=== PATIENT | female | born 2000 | race Caucasian/White ===

== ENCOUNTER 2024-06-08 11:56 | Outpatient (CLI) | payer OTHER, SELFPAY ==
--- OUTSIDE RECORDS SUMMARY | 2024-06-08 11:58 | XMS_ITS | Clinical Summary ---
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 0 02/25/2014 Active Estarylla 0.25-35 mg-mcg tabletIndication s:Irregular periods TAKE 1 TABLET BY MOUTH EVERY DAY 84 Tablet 01/20/2021 Active Active Problems Problem Noted Date Diagnosed Date Anxiety 11/28/2015 Seasonal allergies 11/28/2015 Immunizations Name Administration Dates Next Due DTaP 10/05/2004, 1,1999,06/19,1999 HIB-HepB (Comvax) 1999,1999 Hepatitis A (Peds) 11/10/2017,10/15/2016 Hepatitis B (Peds) 09/02/2004 Hepatitis B, Unspecified 03/09/2000 Human Papilloma Virus Vaccine 06/30/2012, 012,12/14/2011 Inactivated Polio Vaccine 09/02/2004,1999, 1999 Influenza Virus, Unspecified 03/20/2009 Influenza, IIV3 (Age >=3 years) 05/11/2003 MENINGOCOCCAL VACCINE 2 VIAL 2MO-55YO (MENVEO) 10/15/2016 MMR 10/05/2004,09/02/2004 Polio Virus, Unspecified 1999 Tdap 12/14/2011 Varicella Vaccine 12/14/2011,03/09/2000 Family History Medical History Relation Name Comments Good Health Father Good Health Mother Good Health Sister Relation Name Status Comments Father Mother Alive Sister Social History Tobacco Use Types Packs/Day Years Used Date Smoking Tobacco: Never Smokeless Tobacco: Never Tobacco Cessation:Counseling Given: Yes Comments:no passive smoke exposure Alcohol Use Standard Drinks/Week Comments Yes 0 (1 standard drink = 0.6 oz pur e alcohol) socially PHQ-2 Answer Date Recorded PHQ-2 TOTAL SCORE 3 04/10/2020 Social Connections Answer Date Recorded Frequency of Communication with Friends and Fami ly Not on file 06/06/2021 Financial Resource Strain Answer Date R ecorded Difficulty of Paying Living Expenses Not on file 06/06/2021 Difficulty of Paying Living Expenses Not on file 06/06/2021 Comments No Sex and Gender Information Value Date Recorded Sex Assigned at Not on file Legal Sex Female 11:23 AM CDT Gender Identity Not on file Sexual Orientation Not on file Obstetrics History Para Term AB IAB SAB Ectopic Multiple Livin g Live Births 0 0 0 0 0 0 0 0 Last Filed Vital Signs Vital Sign Reading Time Taken Comments Blood Pressure 116/76 05/24/2019 9:29 AM CAD MANAGER Pulse 77 05/24/2019 9:29 AM CAD MANAGER Temperature 36.5 C (97.7 F) 05/24/2019 9:29 AM CAD MANAGER Respiratory Rate - - Oxygen Saturation 98% 05/24/2019 9:29 AM CAD MANAGER Inhaled Oxygen Concentration - - Weight 69.9 kg (154 lb) 05/24/2019 9:29 AM CAD MANAGER Height 168 cm (5' 6.14) 05/24/2019 9:29 AM CAD MANAGER Body Mass Index 24.75 05/24/2019 9:29 AM CAD MANAGER Plan of Treatment Health Maintenance Due Date Last Done Comments HIV for age 15-65 2014 Hepatitis C screening for age 18-79 2017 Pap test for age 21-65 02/25/2020 BMI (ht and wt on same day) for age 18+ 05/24/2020 05/24/2019, 11/20/2018, 11/10/2017 Depression screening for age 12+ 04/10/2021 04/10/2020, 05/24/2019, 11/10/2017, Additional history exists Tetanus booster 12/13/2021 12/14/2011 COVID-19 vaccine series (2023- season) 2024 Influenza for age 9-49 02/05/2024 03/20/2009, 2002 Tdap Completed 12/14/2011 HPV series for age 9-26 Completed 06/30/19 13, 02/28/2012, 12/14/2011 Pneumococcal series for age 6-49 Aged Out No longer eligible based on patient's age to complete this topic [place] [id number] [place] [id number] [place] [id number] Care Teams Sinter Press Operator Relationship Specialty Start Date End Date None . 02/14/14
[2024-06-08 12:20] VITALS: PULSE 117; O2SAT 98
[2024-06-08 12:24] VITALS: RESP 18; TEMP 36.9
[2024-06-08 12:25] VITALS: PULSE 118; O2SAT 98
[2024-06-08 12:32] VITALS: BP 114/67; PULSE 100
--- NOTE | 2024-06-08 12:47 | CRLHL7_ITS ---
For Patients: As a result of the Century Cures Act, medical imaging exams and procedure reports are released immediately into your electronic medical record. You may view this report before your referring provider. If you have questions, please contact your health care provider. INDICATION: Vaginal bleeding COMPARISON: None TECHNIQUE: Real time wu scale imaging of the fetus was performed as well as color Doppler analysis of the umbilical vessels. FINDINGS: Sonographic imaging demonstrates a single living intrauterine gestation. The fetus has a regular cardiac rate of 149 beats per minute. The fetus has a vertex orientation. The placenta lies posterior without evidence of placenta previa or abruption. Amniotic fluid volume appears normal. The cervix is closed and measures 3.9 cm in length. The composite ultrasound gestational age is calculated at 29 weeks and 2 days with an estimated sonographic due date of 08/22/2024. The estimated weight is 1395 grams which lies at the 65th percentile. The following biometric measurements were obtained: Biparietal diameter: 7.2 cm, 28 weeks and 5 days Head circumference: 26.9 cm, 29 weeks and 2 days Abdominal circumference: 25.6 cm, 29 weeks and 5 days Femur length: 5.5 cm, 29 weeks and 1 day The HC/AC ratio measures: 1.05 Biophysical profile exam: Gross body movements: 2/2 tone: 2/2 Respiratory activity: 2/2 Amniotic Fluid: 2/2 IMPRESSION: 1. Single living intrauterine gestation in vertex position with heart rate 149. No abnormalities are noted. 2. Normal biophysical profile exam score of 8/8. 3. Ultrasound gestational age 29 weeks and 2 days with sonographic due date 08/22/2024. Dictated by Ambrosio Oswald MD @ 06/08/2024 2:04:24 PM (Electronically Signed)
--- NOTE | 2024-06-08 12:50 | PM.OBLDTN ---
OB - Triage/Final Diagnosis Visit Information Date Seen: 06/08/24 Narrative: The patient is a 24 year old 1 para 0 at 28w5d gestation by patient report, who presents with vaginal bleeding with wiping only this morning and later morning. She has had prior episodes similar to this at around 20 weeks and was sent home from hospital in [place]. No episodes since. She is here on holiday and records are here. She reports she was told she has a low lying placenta. No LOF, vaginal itching or odor. good movement. No intercourse in the last 24 hours. No dysuria, abdominal pain. PMH: Depression Seasonal allergies A: Benign vaginal bleeding in 28w5d BPP 8/8 US findings:1. Single living intrauterine gestation in vertex position with heart rate 149. No abnormalities are noted. 2. Normal biophysical profile exam score of 8/8. 3. Ultrasound gestational age 29 weeks and 2 days with sonographic due date 08/22/2024. Sonographic imaging demonstrates a single living intrauterine gestation. The fetus has a regular cardiac rate of 149 beats per minute. The fetus has a vertex orientation. The placenta lies posterior without evidence of placenta previa or abruption. Amniotic fluid volume appears normal. The cervix is closed and measures 3.9 cm in length. The composite ultrasound gestational age is calculated at 29 weeks and 2 days with an estimated sonographic due date of 08/22/2024. The estimated weight is 1395 grams which lies at the 65th percentile. P: Discharge home with precautions reviewed. To return with any new signs or symptoms or worsening of bleeding. To consider withholding intercourse only to prevent unnecessary worry if more bleeding were to occur. No indications of harm to or baby at this time, but will return with any changes. Is returning to [place] on Tuesday. Encouraged hydration, good mobility and good hand hygiene. They agree with the plan and have no further questions at this time. Evaluation Vital signs: Vital Signs - 24 hr 06/08/24 12:20 06/08/24 12:24 06/08/24 12:25 Temperature 98.4 F Pulse Rate Respiratory Rate 18 Blood Pressure Pulse Oximetry 98 98 06/08/24 12:32 Temperature Pulse Rate 100 Respiratory Rate Blood Pressure 114/67 Pulse Oximetry Comments: Vitals Reviewed Constitutional:? Alert and oriented x3 HEENT:? Normocephalic, atraumatic Neck:? Supple Lungs:? Clear to auscultation bilaterally Heart:? Regular rate and rhythm, no murmur, rub or gallop Abdomen:? Soft, nontender, and gravid. Extremities:? No edema or erythema Cervix: Long thick and closed per US NST: 140 bpm/moderate variability/intermittently present accelerations/ no significant decelerations/no contractions, but possibly some irritability, but patient is not feeling anything Final Diagnosis (1) Vaginal bleeding during : Status: Acute (2) : Status: Acute
[2024-06-08 13:56] VITALS: BP 113/72; PULSE 97
[2024-06-08 14:53] LABS: Appearance Urine Clear (Clear); Bilirubin Urine Negative (Negative); Blood Urine 3+ (Negative); Color Urine Yellow (Yellow); Glucose Urine Negative (Negative); Ketones Urine Negative (Negative); Leukocyte Esterase Urine 3+ (Negative); Nitrite Urine Negative (Negative); Protein Urine Trace (Negative); Urobilinogen Urine 0.2 (0.2-1.0)
[2024-06-08 14:55] LABS: Bacteria Urine Moderate; Squamous Epithelial Cell Urine Few (None-Few)
--- NOTE | 2024-06-08 18:02 | PC.OBNST ---
NST Note NST Note Start: 06/08/24 12:17 Freq: ONCE Status: Discharge Protocol: Document 06/08/24 14:29 MMB (Rec: 06/08/24 14:30 MMB [email or web address]) NST Note 1 Para (# of births) 0 EDC 08/26/24 Gestational Age In Weeks & Days 28 Weeks & 5 Days Patient Presented with Complaint(s) of Vaginal bleeding Reactive Yes Appropriate for Gestational Age Yes DOM Ramirez RN Date 06/08/24 Reactive Yes Appropriate for Gestational Age Yes DOM Morgan CNM Date 06/08/24 OB NST charge Yes Complete NST Note via Write Note Yes The provider's electronic signature indicates the NST is reactive/appropriate for gestational age. *Note to provider: If an addendum is required, open the patient's chart and click on the note under the Nurse/Allied Health tab.
== END 2024-06-08 15:05 | disposition home or self-care (01) ==
LOC: ED 12:13 → OB OUT 12:14 → OB 12:14
PROVIDERS: PCP Midwife; Visit Provider Midwife
DX: O46.93 Antepartum hemorrhage, unspecified, third trimester (principal); Z3A.28 28 weeks gestation of pregnancy
CPT/HCPCS: 59025; 76815; 76817; 76819; 81001; 87086; G0463